=== PATIENT | female | born 1985 | race Caucasian/White ===

== ENCOUNTER → 2017-01-17 | Outpatient (CLI) | payer OTHER ==
[~2017-01-17] MED LIST: *ANUSOI RE; ACET500C OR; COLA100C2 OR; IBUP600T OR; MILKSUS OR; PRENTAB8 PO; VICO5TAB OR
[2017-01-17 17:32] LABS: ALBUMIN 3.6 GM/DL (3.2-5.2); ANION GAP 7 MEQ/L (8-16); BLOOD UREA NITROGEN 15 MG/DL (7-18); CALCIUM LEVEL 8.4 MG/DL (8.5-10.1); CARBON DIOXIDE LEVEL 28 MEQ/L (21-32); CHLORIDE LEVEL 105 MEQ/L (98-107); CREATININE FOR GFR 0.95 MG/DL (0.55-1.02); GLOMERULAR FILTRATION RATE > 60.0 (>60); GLUCOSE, FASTING 109 MG/DL (70-105); PHOSPHORUS LEVEL 2.5 MG/DL (2.5-4.9); POTASSIUM SERUM 4.2 MEQ/L (3.5-5.1); SODIUM LEVEL 140 MEQ/L (136-145)
== END ==
LOC: M WUC 12:01
PROVIDERS: ATTEND Internal Medicine Nephrology
DX: R80.9 Proteinuria, unspecified (principal)

== ENCOUNTER → 2017-04-13 | Outpatient (CLI) | payer OTHER ==
[2017-04-13 16:41] LABS: FREE T4 1.8 NG/DL (0.76-1.46)
== END ==
LOC: M WUC 14:43
PROVIDERS: ATTEND Surgery
DX: E03.9 Hypothyroidism, unspecified (principal); Z01.812 Encounter for preprocedural laboratory examination

== ENCOUNTER → 2017-06-15 | Outpatient (CLI) | payer OTHER ==
[2017-06-15 15:50] LABS: FREE T4 1.26 NG/DL (0.76-1.46)
== END ==
LOC: M WUC 11:48
PROVIDERS: ATTEND Internal Medicine Endocrinology, Diabetes & Metabolism
DX: E05.00 Thyrotoxicosis with diffuse goiter without thyrotoxic crisis or storm (principal)

== ENCOUNTER → 2017-09-20 | Outpatient (CLI) | payer OTHER ==
[2017-09-20 19:37] LABS: BASO % 0.1 % (0.0-1.0); EOS # 0.1 10^3/uL (0.0-0.50); EOS % 1.4 % (0.0-3.0); HEMATOCRIT 39.2 % (36.0-47.0); HEMOGLOBIN 13.3 g/dl (12.0-16.0); IMMATURE GRANULOCYTE % 0.2 % (0-0); LYMPH # 2.5 10^3/uL (1.5-4.5); LYMPH % 29.6 % (24.0-44.0); MEAN CORPUSCULAR HEMOGLOBIN 28.9 pg (27.0-33.0); MEAN CORPUSCULAR HGB CONC 33.9 g/dl (32.0-36.5); MONO # 0.5 10^3/uL (0.0-0.8); MONO % 6.2 % (0.0-5.0); NEUTROPHILS # 5.3 10^3/uL (1.8-7.7); NEUTROPHILS % 62.5 % (36.0-66.0); PLATELET COUNT, AUTOMATED 203 10^3/uL (150-450); RED BLOOD COUNT 4.61 10^6/uL (4.00-5.40); RED CELL DISTRIBUTION WIDTH 13.2 % (11.5-14.5); WHITE BLOOD COUNT 8.5 10^3/uL (4.0-10.0)
[2017-09-20 19:49] LABS: ALBUMIN 4.2 GM/DL (3.2-5.2); ALBUMIN/GLOBULIN RATIO 1.17 (1.00-1.93); ALKALINE PHOSPHATASE 69 U/L (45-117); ALT/SGPT 28 U/L (12-78); ANION GAP 6 MEQ/L (8-16); AST/SGOT 21 U/L (7-37); BILIRUBIN,TOTAL 0.6 MG/DL (0.2-1.0); BLOOD UREA NITROGEN 15 MG/DL (7-18); CALCIUM LEVEL 9.1 MG/DL (8.5-10.1); CARBON DIOXIDE LEVEL 29 MEQ/L (21-32); CHLORIDE LEVEL 108 MEQ/L (98-107); CREATININE FOR GFR 0.93 MG/DL (0.55-1.02); FERRITIN 50 NG/ML (8-252); GLOMERULAR FILTRATION RATE > 60.0 (>60); GLUCOSE, FASTING 79 MG/DL (70-105); IRON (FE) 87 UG/DL (50-170); PERCENT SATURATION 33.7 % (13.2-45.0); PHOSPHORUS LEVEL 2.9 MG/DL (2.5-4.9); POTASSIUM SERUM 4.4 MEQ/L (3.5-5.1); SODIUM LEVEL 143 MEQ/L (136-145); TOTAL IRON BINDING CAPACITY 258 UG/DL (250-450); TOTAL PROTEIN 7.8 GM/DL (6.4-8.2)
[2017-09-20 19:55] LABS: TOTAL 25(OH) VITAMIN D 29.6 NG/ML (30.0-100.0); VITAMIN B12 LEVEL 541 PG/ML (247-911)
[2017-09-20 20:12] LABS: ESTIMATED AVERAGE GLUCOSE 103 MG/DL (60-110); HEMOGLOBIN A1c 5.2 %
[2017-09-20 20:43] LABS: HEMATOCRIT 39.2 % (36.0-47.0)
[2017-09-21 12:04] LABS: PRETREATED FOLATE FOR RBCFOL 11.9 NG/ML; RBC FOLATE 637.5 NG/ML (280-791)
[2017-09-25 10:16] LABS: VITAMIN B1 LEVEL WHOLE BLOOD 83.6 nmol/L (66.5-200.0)
== END ==
LOC: M WUC 11:41
DX: K91.2 Postsurgical malabsorption, not elsewhere classified (principal); E55.9 Vitamin D deficiency, unspecified; Z98.84 Bariatric surgery status
CPT/HCPCS: 83550

== ENCOUNTER → 2018-08-22 | Outpatient (CLI) | payer OTHER ==
[2018-08-22 16:43] LABS: HEMATOCRIT 39.3 % (36.0-47.0); MEAN CORPUSCULAR HEMOGLOBIN 27.4 pg (27.0-33.0); MEAN CORPUSCULAR HGB CONC 33.1 g/dl (32.0-36.5); MEAN CORPUSCULAR VOLUME 82.7 fl (80.0-96.0); PLATELET COUNT, AUTOMATED 227 10^3/uL (150-450); RED BLOOD COUNT 4.75 10^6/uL (4.00-5.40); WHITE BLOOD COUNT 8.4 10^3/uL (4.0-10.0)
[2018-08-22 16:49] LABS: BLOOD UREA NITROGEN 11 MG/DL (7-18); CREATININE FOR GFR 0.84 MG/DL (0.55-1.30); GLUCOSE, FASTING 77 MG/DL (70-100)
[2018-08-22 16:50] LABS: CALCIUM LEVEL 8.5 MG/DL (8.5-10.1); CARBON DIOXIDE LEVEL 28 MEQ/L (21-32); CHLORIDE LEVEL 105 MEQ/L (98-107); FERRITIN 7 NG/ML (8-252); GLOMERULAR FILTRATION RATE > 60.0 (>60); IRON (FE) 52 UG/DL (50-170); PERCENT SATURATION 16.9 % (13.2-45.0); POTASSIUM SERUM 4.3 MEQ/L (3.5-5.1); SODIUM LEVEL 140 MEQ/L (136-145); TOTAL IRON BINDING CAPACITY 307 UG/DL (250-450)
[2018-08-22 16:53] LABS: TOTAL 25(OH) VITAMIN D 29.2 NG/ML (30.0-100.0)
[2018-08-22 16:59] LABS: TOTAL PROTEIN,RANDOM URINE 129.5 MG/DL (0.0-12.0)
== END ==
LOC: M WUC 13:44
PROVIDERS: ATTEND Internal Medicine Nephrology
DX: E55.9 Vitamin D deficiency, unspecified (principal); D50.9 Iron deficiency anemia, unspecified; R80.9 Proteinuria, unspecified

== ENCOUNTER → 2019-01-02 | Outpatient (CLI) | payer OTHER ==
[2019-01-02 14:47] LABS: APPEARANCE, URINE CLEAR (CLEAR); BACTERIA, URINE AUTO NEGATIVE (NEGATIVE); BILIRUBIN, URINE AUTO NEGATIVE (NEGATIVE); BLOOD, URINE BLOOD NEGATIVE (NEGATIVE); COLOR, URINE STRAW (YELLOW); GLUCOSE, URINE (UA) AUTO NEGATIVE (NEGATIVE); KETONE, URINE AUTO NEGATIVE (NEGATIVE); LEUKOCYTE ESTERASE, URINE AUTO NEGATIVE (NEGATIVE); NITRITE, URINE AUTO NEGATIVE (NEGATIVE); PROTEIN, URINE AUTO 1+ mg/dL (NEGATIVE); RBC, URINE AUTO 2 /HPF (0-3); SPECIFIC GRAVITY URINE AUTO 1.004 (1.002-1.035); SQUAMOUS EPITHELIAL CELL UR AU 1 /HPF (0-6); UROBILINOGEN, URINE AUTO 0.2 mg/dL (0.0-2.0); WBC, URINE AUTO 0 /HPF (0-3)
[2019-01-02 14:48] LABS: BASO % 0.2 % (0.0-1.0); EOS # 0.1 10^3/uL (0.0-0.50); EOS % 1.7 % (0.0-3.0); HEMATOCRIT 40.3 % (36.0-47.0); HEMOGLOBIN 13.1 g/dl (12.0-15.5); LYMPH # 1.9 10^3/uL (1.5-4.5); LYMPH % 32.3 % (24.0-44.0); MEAN CORPUSCULAR HEMOGLOBIN 27.4 pg (27.0-33.0); MEAN CORPUSCULAR HGB CONC 32.5 g/dl (32.0-36.5); MEAN CORPUSCULAR VOLUME 84.3 fl (80.0-96.0); MONO # 0.4 10^3/uL (0.0-0.8); MONO % 5.8 % (0.0-5.0); NEUTROPHILS # 3.6 10^3/uL (1.8-7.7); NEUTROPHILS % 59.8 % (36.0-66.0); PLATELET COUNT, AUTOMATED 237 10^3/uL (150-450); RED BLOOD COUNT 4.78 10^6/uL (4.00-5.40)
[2019-01-02 14:59] LABS: ALBUMIN 3.6 GM/DL (3.2-5.2); ALT/SGPT 10 U/L (12-78); BILIRUBIN,DIRECT 0.2 MG/DL (0.0-0.2); BILIRUBIN,TOTAL 0.9 MG/DL (0.2-1.0); BLOOD UREA NITROGEN 9 MG/DL (7-18); CREATININE FOR GFR 0.89 MG/DL (0.55-1.30); GLOMERULAR FILTRATION RATE > 60.0 (>60); GLUCOSE, FASTING 89 MG/DL (70-100); TOTAL PROTEIN 7.6 GM/DL (6.4-8.2); URIC ACID 3.9 MG/DL (2.6-6.0)
[2019-01-03 10:11] LABS: HEPATITIS B SURFACE ANTIGEN NEGATIVE (NEGATIVE); RUBELLA IgG QUALITATIVE IMMUNE (IMMUNE)
== END ==
LOC: M WUC 09:30
PROVIDERS: ATTEND Nurse Practitioner Adult Health
DX: Z34.81 Encounter for supervision of other normal pregnancy, first trimester (principal); Z3A.00 Weeks of gestation of pregnancy not specified

== ENCOUNTER → 2019-01-10 | Outpatient (CLI) | payer OTHER | LOC: M WUC 13:04 | PROVIDERS: ATTEND Obstetrics & Gynecology | DX: O00.90 Unspecified ectopic pregnancy without intrauterine pregnancy (principal); Z3A.00 Weeks of gestation of pregnancy not specified ==

== ENCOUNTER → 2019-01-13 | Outpatient (CLI) | payer OTHER | LOC: M WUC 08:38 | PROVIDERS: ATTEND Midwife | DX: O00.90 Unspecified ectopic pregnancy without intrauterine pregnancy (principal) ==

== ENCOUNTER → 2019-03-08 | Outpatient (CLI) | payer OTHER | LOC: M WUC 11:08 | PROVIDERS: ATTEND Midwife | DX: O00.90 Unspecified ectopic pregnancy without intrauterine pregnancy (principal) ==

== ENCOUNTER → 2021-03-08 | Outpatient (CLI) | payer BC ==
[2021-03-08 20:05] LABS: BASO % 0.2 % (0.0-1.0); EOS # 0.1 10^3/uL (0.0-0.5); EOS % 1.3 % (0.0-3.0); HEMATOCRIT 37.9 % (36.0-47.0); HEMOGLOBIN 12.7 g/dl (12.0-15.5); LYMPH # 2.5 10^3/uL (1.5-5.0); LYMPH % 24.3 % (24.0-44.0); MEAN CORPUSCULAR HGB CONC 33.5 g/dl (32.0-36.5); MEAN CORPUSCULAR VOLUME 86.5 fl (80.0-96.0); MONO # 0.6 10^3/uL (0.0-0.8); MONO % 5.8 % (2.0-8.0); NEUTROPHILS % 68.1 % (36.0-66.0); PLATELET COUNT, AUTOMATED 220 10^3/uL (150-450); RED BLOOD COUNT 4.38 10^6/uL (4.00-5.40); WHITE BLOOD COUNT 10.3 10^3/uL (4.0-10.0)
[2021-03-08 20:21] LABS: CREATININE,RANDOM URINE 51.8 MG/DL; TOTAL PROTEIN,RANDOM URINE 45.5 MG/DL (0.0-12.0)
[2021-03-08 20:27] LABS: BLOOD UREA NITROGEN 10 MG/DL (7-18); CARBON DIOXIDE LEVEL 25 MEQ/L (21-32); CHLORIDE LEVEL 105 MEQ/L (98-107); CREATININE FOR GFR 0.78 MG/DL (0.55-1.30); GLOMERULAR FILTRATION RATE > 60.0 (>60); GLUCOSE, FASTING 66 MG/DL (70-100); POTASSIUM SERUM 4.3 MEQ/L (3.5-5.1); SODIUM LEVEL 138 MEQ/L (136-145)
[2021-03-08 20:28] LABS: ALBUMIN 3.1 GM/DL (3.2-5.2); CALCIUM LEVEL 9.2 MG/DL (8.5-10.1); FERRITIN 7 NG/ML (8-252); IRON (FE) 60 UG/DL (50-170); PERCENT SATURATION 15.5 % (13.2-45.0); TOTAL IRON BINDING CAPACITY 387 UG/DL (250-450)
[2021-03-08 20:33] LABS: PTH INTACT 24.2 PG/ML (18.5-88.0)
== END ==
LOC: M WUC 15:03
DX: R80.9 Proteinuria, unspecified (principal)

== ENCOUNTER → 2021-07-26 | Outpatient (CLI) | payer BC ==
[2021-07-26 12:43] LABS: HEMATOCRIT 31.5 % (36.0-47.0); HEMOGLOBIN 10.2 g/dl (12.0-15.5); MEAN CORPUSCULAR HEMOGLOBIN 26.4 pg (27.0-33.0); MEAN CORPUSCULAR HGB CONC 32.4 g/dl (32.0-36.5); MEAN CORPUSCULAR VOLUME 81.6 fl (80.0-96.0); PLATELET COUNT, AUTOMATED 213 10^3/uL (150-450); RED BLOOD COUNT 3.86 10^6/uL (4.00-5.40); WHITE BLOOD COUNT 10.6 10^3/uL (4.0-10.0)
[2021-07-26 13:11] LABS: ALBUMIN 2.4 GM/DL (3.2-5.2); ALT/SGPT 7 U/L (12-78); BILIRUBIN,TOTAL 0.3 MG/DL (0.2-1.0); BLOOD UREA NITROGEN 8 MG/DL (7-18); CALCIUM LEVEL 9.4 MG/DL (8.5-10.1); CARBON DIOXIDE LEVEL 23 MEQ/L (21-32); CHLORIDE LEVEL 108 MEQ/L (98-107); CREATININE FOR GFR 0.87 MG/DL (0.55-1.30); GLOMERULAR FILTRATION RATE > 60.0 (>60); GLUCOSE, FASTING 89 MG/DL (70-100); POTASSIUM SERUM 4.3 MEQ/L (3.5-5.1); SODIUM LEVEL 139 MEQ/L (136-145); TOTAL PROTEIN 6.3 GM/DL (6.4-8.2)
[2021-07-26 13:17] LABS: CREATININE,RANDOM URINE 72.1 MG/DL
[2021-07-26 15:07] LABS: TOTAL PROTEIN,RANDOM URINE 145.4 MG/DL (0.0-12.0)
== END ==
LOC: M LAB 11:56
PROVIDERS: ATTEND Specialist
DX: O16.3 Unspecified maternal hypertension, third trimester (principal); Z3A.00 Weeks of gestation of pregnancy not specified

== ENCOUNTER → 2021-08-01 | Outpatient (CLI) | payer BC ==
[~2021-08-01] MED LIST changes: +IBUP80TA PO; +OXYC1TAB23 PO; +PRENTAB9 PO; +TUMS500C PO
== END ==
LOC: M LABSMTC 11:50
PROVIDERS: ATTEND Anesthesiology
DX: Z01.818 Encounter for other preprocedural examination (principal); Z11.52 Encounter for screening for COVID-19

== ENCOUNTER 2021-08-02 08:41 | Inpatient (IN) | payer BC ==
[2021-08-02] VITALS (9 sets, daily range): BP systolic 117–158; BP diastolic 56–88
[~2021-08-02] VITALS: Ht 152.4 cm; Wt 93.7 kg
[~2021-08-02 08:41] MED LIST changes: -IBUP80TA PO; -OXYC1TAB23 PO; -PRENTAB9 PO; -TUMS500C PO
[2021-08-02] MEDS ORDERED: SCOPOLAMINE 1MG TRANSDERMAL PATCH TOP SCH (09:00)
[2021-08-02] MEDS ORDERED: LACTATED RINGER'S 1000 ML IV STA (09:16)
[2021-08-02] MEDS ORDERED: ceFAZolin SOD 2 GM in IV 1 EA IV ONE (09:20)
[2021-08-02] MEDS ORDERED: LR 1,000 ML IV SCH ×2 (09:20→13:10)
--- NOTE | 2021-08-02 09:31 | HPEPDOC ---
Obstetrical History & Physical General Date of Admission Aug 02, 2021 at 08:41 History of Present Illness 36 yo at 37 5/7 weeks by 6 week ultrasound (EDC=08/18/21) presents for a repeat section. The indication for delivery <39 weeks is hypertension, possible preeclampsia. Pt has proteinuria at baseline from a nephropathy. no complaints. 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 Both children with cleft palate. Social History Marital Status: Family situation: Spouse/partner home Psychosocial History: No pertinent psych hx * Smoker: non-smoker Allergies Coded Allergies: No Known Allergies (Verified , 08/02/21) Physical Examination Physical Examination GENERAL: Alert and oriented times three. BREAST: . ABDOMEN: Gravid and non-tender to touch. FETUS: Is vertex (VTX) by sterile vaginal examination (SVE), fetus is vertex (VTX) by Ray. HEART RATE: Regular rate and rhythm. LUNGS: Clear to auscultation (CTA). EXTREMITIES: No edema. No clonus. Deep tendon reflexes (DTRs) + . Laboratory Data 24H [facility] Laboratory Tests 2 08/02/21 08:53: Serology Scanned Report Hepatitis B Testing Steroid Therapy Steroid Therapy: No Assessment Variability: Moderate Accelerations: Positive Decelerations: None Tocometer Contractions: No Assessment/Plan Assessment Pt is a 36-year-old (G)10 para (P)2,0,7,2 at 37+5 weeks by 6-week ultrasound presents to Labor and Delivery for repeat , as well as hypertensive disorder. Plan Admit and orient. Housekeeper Manager and consent. Diet: NPO Labs and intravenous (IV) per unit protocol. Consent for signed. AZUCENA PFEIFFER MD Aug 02, 2021 09:31
[2021-08-02 09:50] LABS: HEMATOCRIT 32.1 % (36.0-47.0); HEMOGLOBIN 10.5 g/dl (12.0-15.5); MEAN CORPUSCULAR HEMOGLOBIN 26.5 pg (27.0-33.0); MEAN CORPUSCULAR HGB CONC 32.7 g/dl (32.0-36.5); MEAN CORPUSCULAR VOLUME 81.1 fl (80.0-96.0); PLATELET COUNT, AUTOMATED 244 10^3/uL (150-450); RED BLOOD COUNT 3.96 10^6/uL (4.00-5.40); WHITE BLOOD COUNT 8.3 10^3/uL (4.0-10.0)
[2021-08-02] MEDS ORDERED: BICITRA 30ML SOLN UDC PO SCH (10:05)
[2021-08-02] MEDS ORDERED: BICITRA 30ML SOLN UDC As Ordered ONE (10:09)
[2021-08-02] MEDS ORDERED: PRENTAB9 PO (10:16)
[2021-08-02] MEDS ORDERED: TUMS500C PO (10:16)
[2021-08-02] MEDS ORDERED: HOME MED LIST COMPLETE! XX SCH (11:15)
[2021-08-02] MEDS ORDERED: MORPHINE PRES-FREE INJ 10 MG/10 ML VIAL (J2274) As Ordered ONE (11:28)
[2021-08-02] MEDS ORDERED: PHENYLephrine 500MCG 5ML (100MCG/ML) SYRINGE As Ordered ONE (11:29)
[2021-08-02] MEDS ORDERED: ONDANSETRON 4MG/2ML VIAL As Ordered ONE (11:29)
[2021-08-02] MEDS ORDERED: METOCLOPRAMIDE INJ 10MG/2ML VIAL (J2765 PER 1) As Ordered ONE (11:29)
[2021-08-02] MEDS ORDERED: ePHEDrine SULFATE 25 MG/5 ML(5MG/ML) SYRINGE As Ordered ONE (11:29)
[2021-08-02] MEDS ORDERED: KETOROLAC 60MG 2ML VIAL As Ordered ONE (11:29)
[2021-08-02] MEDS ORDERED: ONDANSETRON 4MG/2ML VIAL IV PRN ×2 (11:45→13:10)
[2021-08-02] MEDS ORDERED: METOCLOPRAMIDE INJ 10MG/2ML VIAL (J2765 PER 1) IV PRN ×2 (11:45→13:10)
[2021-08-02] MEDS ORDERED: NALBUPHINE HCL 10 MG/ML AMP (J2300) IV PRN (11:45)
[2021-08-02] MEDS ORDERED: NALOXONE INJ 0.4MG/1ML VIAL (J2310 PER 1MG) IV PRN ×2 (11:45)
[2021-08-02] MEDS ORDERED: diphenhydrAMINE 50MG/ML VIAL (J1200) IV PRN (11:45)
[2021-08-02] MEDS ORDERED: OXYTOCIN 30 UNITS IN 0.9% NaCl 500ML IV BAG (J2590) As Ordered ONE ×2 (11:48→13:02)
[2021-08-02] MEDS ORDERED: PERCOCET 5MG/325MG TAB PO PRN ×3 (12:35→13:10)
[2021-08-02] MEDS ORDERED: MEASLES,MUMPS,RUBELLA VACCINE INJ (MMR-II) (90707) SC SCH (12:35)
[2021-08-02] MEDS ORDERED: SIMETHICONE 80MG CHEW TAB PO PRN (12:35)
[2021-08-02] MEDS ORDERED: RHOGAM 300 MCG (1500 IU) INJ (J2790) IM SCH (12:35)
[2021-08-02] MEDS ORDERED: DOCUSATE SODIUM 100MG CAPSULE PO PRN (12:35)
[2021-08-02] MEDS ORDERED: OXYTOCIN DRIP 30 UNITS in IV 1 EA IV SCH (12:35)
[2021-08-02] MEDS ORDERED: fentaNYL 100 MCG/2 ML INJECTION (J3010) IV PRN (13:10)
[2021-08-02] MEDS ORDERED: KETOROLAC 30 MG/ML 1ML VIAL As Ordered ONE (13:33)
[2021-08-02] MEDS: KETOROLAC 30 MG/ML 1ML VIAL IV SCH ×2 (13:37→19:31)
--- NOTE | 2021-08-02 15:55 | ROOPDOC ---
[facility] Report Of Operation Report of Operation DATE OF PROCEDURE: 08/02/21 Report of operation Preoperative diagnosis: 37 5/7 weeks, prior section, preeclampsia Postoperative diagnosis: same Procedure: Repeat low transverse section. Surgeon: Azucena Pfeiffer M.D. Asst.: Dulce Maria Nichole CNM EBL: 600 ml. Urine output: 100 mL's. Findings: 6 lbs. 8 oz. female , 's 9 and 9. Uterus completely adhered to the anterior abdominal wall. No access to peritoneal cavity. No ability to observe fallopian tubes or ovaries.. Operative summary: Patient taken to the operating room where spinal anesthesia was induced. She was prepped and draped in a sterile fashion in the supine position. A Gilmore catheter was placed. A Pfannenstiel skin incision was made with scalpel. Fascia was incised and extended bilaterally. The peritoneal cavity was not able to be entered due to dense adhesions of the uterus the anterior abdominal wall. A a window was available in the lower uterine segment to allow for hysterotomy to be performed. A curvilinear incision was made in lower uterine segment until Clear fluid was noted. The incision was extended manually. The was delivered from the vertex position without difficulty. Cord was doubly clamped and cut. The was handed to the awaiting nurses. The placenta was expressed. Uterus was closed with O-Vicryl in a running locked fashion. A second imbricating layer of Vicryl was placed. There was no visible peritoneum to allow for closure. Fascia was closed with 0 Vicryl in running fashion. Skin was closed 4-0 Monocryl subcuticular sutures. Sponge, instrument and needle counts were correct. Dulce Maria Nichole CNM, assisted with all aspects of the procedure. She helped each layer of the incision and deliver the fetus. AZUCENA PFEIFFER MD Aug 02, 2021 15:55
[2021-08-02] MEDS: LR 1,000 ML IV SCH (17:26)
[2021-08-03] MEDS: LR 1,000 ML IV SCH (00:04)
[2021-08-03] MEDS: KETOROLAC 30 MG/ML 1ML VIAL IV SCH ×2 (01:00→07:34)
[2021-08-03] MEDS ORDERED: IBUP80TA PO (01:06)
[2021-08-03] MEDS ORDERED: OXYC1TAB23 PO (01:07)
[2021-08-03 02:00] VITALS: BP 111/63
[2021-08-03 05:59] VITALS: BP 117/58
[2021-08-03] MEDS: PRENATAL VITAMINS CHEWABLE TABLET PO SCH (07:34)
[2021-08-03 07:56] LABS: HEMATOCRIT 23.2 % (36.0-47.0); MEAN CORPUSCULAR HEMOGLOBIN 26.4 pg (27.0-33.0); MEAN CORPUSCULAR HGB CONC 31.9 g/dl (32.0-36.5); MEAN CORPUSCULAR VOLUME 82.9 fl (80.0-96.0); PLATELET COUNT, AUTOMATED 191 10^3/uL (150-450); WHITE BLOOD COUNT 7.8 10^3/uL (4.0-10.0)
[2021-08-03 08:05] LABS: HEMOGLOBIN 7.4 g/dl (12.0-15.5)
[2021-08-03 10:00] VITALS: BP 126/67
[2021-08-03 14:00] VITALS: BP 128/63
[2021-08-03] MEDS ORDERED: ACETAMINOPHEN 500 MG TAB PO PRN (14:35)
[2021-08-03] MEDS: IBUPROFEN 800 MG TAB PO SCH ×2 (17:15→23:36)
[2021-08-03 17:55] VITALS: BP 135/68
[2021-08-03 21:58] VITALS: BP 138/76
[2021-08-04 02:06] VITALS: BP 144/79
[2021-08-04 05:56] VITALS: BP 146/66
[2021-08-04] MEDS: IBUPROFEN 800 MG TAB PO SCH (08:49)
[2021-08-04] MEDS: PRENATAL VITAMINS CHEWABLE TABLET PO SCH (08:49)
[2021-08-04 10:00] VITALS: BP 150/68
--- NOTE | 2021-08-04 13:24 | DS.PDOC ---
Discharge Summary General Date of Admission Aug 02, 2021 at 08:41 Date of Discharge August 04, 2021 Attending Physician: AZUCENA PFEIFFER MD Discharge Summary PROCEDURES PERFORMED DURING STAY: 1. Spinal anesthesia 2. section. ADMITTING DIAGNOSES: 1. Preeclampsia 2. History of 2 section. DISCHARGE DIAGNOSES: 1. Preeclampsia 2. History of 2 section. COMPLICATIONS/CHIEF COMPLAINT: Previous . HISTORY OF PRESENT ILLNESS: HISTORY OF PRESENT ILLNESS: [Mrs. Santos presented for repeat section at 37 weeks due to concerns for preeclampsia.] [She underwent a repeat section, productive of live born female infant a Apgars were 9 and 9 weight was 6 pounds 8 ounces. Estimated blood loss 600ml.] Patient did well postoperatively by postoperative day [#2] had met all discharge criteria is as discharged home in stable condition DISCHARGE MEDICATIONS: Please see below. ALLERGIES: Please see below. PHYSICAL EXAMINATION ON DISCHARGE: VITAL SIGNS: Please see below. GENERAL: No distress HEENT: WNL ABDOMINAL EXAMINATION: Fundus firm. Dressing intact EXTREMITIES: Equal strength and motion SKIN: Intact NEUROLOGICAL EXAMINATION: Grossly intact PSYCHIATRIC EXAMINATION: Appropriate LABORATORY DATA: Please see below. PROGNOSIS: Good ACTIVITY: As tolerated. Pelvic rest. DIET: As tolerated DISCHARGE PLAN: Discharge today. Remove dressing day 5 DISPOSITION: Home DISCHARGE INSTRUCTIONS: 1. Pelvic rest. Continue vitamins. Medications as ordered. Call with fever, nausea, vomiting, chills, foul lochia, wound exudate or evidence infection. RTO early next week for blood pressure check. DISCHARGE CONDITION: Stable Vital Signs/I&Os Vital Signs Date Time Temp Pulse Resp B/P (MAP) Pulse Ox O2 Delivery O2 Flow Rate FiO2 08/04/21 10:00 97.9 91 18 150/68 (95) 98 08/04/21 05:56 Room Air Discharge Medications Scheduled Ibuprofen (Ibuprofen) 800 Mg Tablet, 800 MG PO Q8H No.137/Iron/Folic Acd ( Vitamin Tablet) 1 Each Tablet, 1 TAB PO DAILY, (Reported) Scheduled PRN Oxycodone HCl/Acetaminophen (Oxycodone-Acetaminophen 5-325) 1 Each Tablet, 1 TAB PO TIDP PRN for pain Miscellaneous Medications Calcium Carbonate (Tums) 200 Mg Tab.chew, 2 TAB PO for cough and congestion, (Reported) Allergies Coded Allergies: No Known Allergies (Verified , 08/02/21) DONALD JIMÉNEZ MD. Aug 04, 2021 13:24
== END 2021-08-04 14:40 | disposition home or self-care (01) | DRG 540 ==
LOC: M LDI 08:41 → M OBS 16:05
PROVIDERS: ADMIT Specialist; ATTEND Specialist
PROC: 10D00Z1 Extraction of Products of Conception, Low, Open Approach (ICD-10-PCS; principal; 2021-08-02 10:30)
DX: O34.211 Maternal care for low transverse scar from previous cesarean delivery (principal); Z37.0 Single live birth; Z3A.37 37 weeks gestation of pregnancy; O14.94 Unspecified pre-eclampsia, complicating childbirth